=== PATIENT | female | born 1980 ===

== ENCOUNTER 2019-06-08 08:45 | Emergency (ER) | payer OTHER, MEDICAID, SELFPAY ==
[2019-06-08 08:57] VITALS: BP 154/88; PULSE 77; RESP 14; TEMP 36.2; O2SAT 98
--- NOTE | 2019-06-08 09:21 | ED.DENTAL ---
HPI - Dental/Oral General Chief complaint: Dental/Oral Stated complaint: LEFT SIDE FACE HURTS BAD TICLARU? Time Seen by Provider: 06/08/19 08:46 Source: patient and family Mode of arrival: Ambulatory History of Present Illness HPI Narrative: Patient here with mother. Complains 9 days of pain at tooth 18. That radiates upwards to the parietal area of her head. No cough cold congestion fever chills. No drooling. No tongue elevation. No dyspnea. No neck pain. Patient in the past has possible history of trigeminal neuralgia. Patient is in the workup of getting MRI for this evaluation. She does see a dentist 2 days ago in [place].. Her local dentist office is not open due to COVID-19. Denies , does not want test dentist placed her on amoxicillin and seemed to improve yesterday but not today Location: Tooth # Teeth map: 1. Tenderness at tooth 18. No surrounding erythema edema. No palpable abscess. No mandibular or cheek swelling edema erythema Related Data Previous Rx's Medication Instructions Recorded ondansetron HCl 4 mg tablet 4 mg PO Q4HP PRN #30 tab MDD 4 mg 11/01/18 clonazepam 2 mg tablet 2 mg PO QDAY 30 Days #30 tab MDD 2 05/09/19 mg lisdexamfetamine 10 mg capsule 10 mg PO DAILY #30 cap 05/09/19 clindamycin HCl 150 mg PO TID #21 cap 06/08/19 clindamycin HCl 300 mg PO TID #21 cap 06/08/19 ibuprofen 800 mg PO Q8H #14 tab 06/08/19 Allergies Allergy/AdvReac Type Severity Reaction Status Date / Time Sulfa (Sulfonamide Allergy Severe hives Verified 04/01/19 14:32 Antibiotics) [SULFA (SULFONAMIDE ANTIBIOTICS)] acetaminophen [From VICODIN] Allergy Intermediate nausea, Verified 04/01/19 14:32 vomiting codeine [CODEINE] Allergy Intermediate passing Verified 04/01/19 14:32 out, vomit hydrocodone [From VICODIN] Allergy Intermediate nausea, Verified 04/01/19 14:32 vomiting Opioids - Morphine Analogues AdvReac Intermediate dizzy, Verified 04/01/19 14:32 nausea, vomitting hair dyes Allergy Intermediate cai Uncoded 04/01/19 14:32 Review of Systems Review of Systems Narrative: GENERAL: Denies chills, fatigue, malaise, fever, sweats. HEENT: Denies sore throat difficulty swallowing, complaint dental pain. RESPIRATORY: Denies dyspnea, cough, wheezing, hemoptysis, sputum. CARDIOVASCULAR: Denies chest pain, palpitations, orthopnea, edema, GASTROINTESTINAL: Denies nausea, vomiting, abdominal pain, diarrhea, constipation, melena. MUSCULOSKELETAL: denies weakness, joint pain, or bony pain SKIN: Denies rash, skin lesions, or other NEUROLOGIC: Denies weakness, headache, numbness, change in speech, confusion, seizures, incoordination. PSYCHIATRIC: No concerning psychosocial issues. 12 point review of systems is negative except for those stated above ROS Unobtainable: All systems reviewed & are unremarkable except as noted in HPI and below Patient History Medical History (Updated 06/08/19 @ 09:30 by Jovani Martinez MD) Post depression (Inactive) Post traumatic stress disorder (PTSD) (Inactive) Situational stress (Acute) Surgical History (Updated 06/06/17 @ 05:11 by Conversion Provider) Status post tubal ligation Family History (Updated 06/30/15 @ 00:00 by Conversion Provider) Brother Age: 37 Mental health problem Child Age: 17 Mental health problem Father Hypertension Grandmother Cancer Diabetes mellitus Mother Hypertension Grandfather Heart disease Grandmother Cancer Social History Smoking Status: Current every day smoker Smoking Status: Current every day smoker Substance Use Type: does not use Exam Narrative Exam Narrative: GENERAL: [] year old patient appears stated age. Well-nourished, well-developed patient, in no distress, not toxic HEAD: Atraumatic. Normocephalic. EYES: Pupils equal round and reactive. Extraocular motions intact. No scleral icterus. No injection or drainage. ENT: Nose without bleeding, purulent drainage. Throat without erythema, tonsillar hypertrophy or exudate. Airway patent. Tenderness at tooth 18. No surrounding erythema edema. No palpable abscess. No fracture. No visible dental caries seen. No mandibular swelling erythema. Small palpable hard nodule from the cheek surface overlying tooth 18 no trismus no malocclusion no tongue elevation or drooling NECK: Trachea midline. Non tender SKIN: No rash or erythema of visible areas Initial Vital Signs Initial Vital Signs: Vital Signs Temperature 97.2 F L 06/08/19 08:57 Pulse Rate 77 06/08/19 08:57 Respiratory Rate 14 06/08/19 08:57 Blood Pressure 154/88 H 06/08/19 08:57 Pulse Oximetry 98 06/08/19 08:57 Course Orders Ordered: Discontinued Medications Al Hydrox/Mg Hydrox/Simethicone 20 ml/ Lidocaine HCl 15 ml 0 ml PO NOW ONE Stop: 06/08/19 09:17 Last Admin: 06/08/19 09:27 Dose: 15 ml Documented by: RONNY Ketorolac Tromethamine (Toradol) 60 mg IM NOW ONE Stop: 06/08/19 09:16 Last Admin: 06/08/19 09:26 Dose: 60 mg Documented by: RONNY Ondansetron HCl (Zofran Odt) 4 mg SL NOW ONE Stop: 06/08/19 09:16 Last Admin: 06/08/19 09:27 Dose: 4 mg Documented by: RONNY Reevaluation(s) Reevaluation #1: Time 9:54 a.m.. Patient states pain better after dental ball as well as Toradol. Not toxic. Desires discharge home. Vital Signs Vital signs: Vital Signs - 8 hr 06/08/19 08:57 Temperature 97.2 F L Pulse Rate 77 Respiratory Rate 14 Blood Pressure 154/88 H Pulse Oximetry 98 MDM - Dental/Oral Differential Diagnosis Differential diagnosis: Likely gingival abscess, dental caries, toothache and dental abscess MDM Narrative Medical decision making narrative: Patient not toxic. Appropriate for discharge home. Patient does have local dentist. Discharge Plan Departure Patient Disposition: Home Clinical Impression: Toothache Instructions: Tooth Decay Prevention (Alternative Therapy), Tooth Abscess, DI for Dental Pain Activity Restrictions/Additional Instructions: Return if worse. Call your family dentist for next appointment that is available within 2 weeks. Return if worse. Prescriptions: New clindamycin HCl 300 mg capsule 300 mg PO TID Qty: 21 RF: 0 clindamycin HCl 150 mg capsule 150 mg PO TID Qty: 21 RF: 0 ibuprofen 800 mg tablet 800 mg PO Q8H Qty: 14 RF: 0 No Action ondansetron HCl 4 mg tablet 4 mg PO Q4HP MDD 4 mg PRN (Reason: nausea and vomiting) Qty: 30 RF: 1 lisdexamfetamine 10 mg capsule 10 mg PO DAILY Qty: 30 RF: 0 clonazepam 2 mg tablet 2 mg PO QDAY MDD 2 mg 30 Days Qty: 30 RF: 2
[2019-06-08] MEDS: KETOROLAC 60 MG/2 ML VIAL IM (09:26)
[2019-06-08] MEDS: MAG HYDROX/ALUMINUM/SIMETH SUS 20 ML, LIDOCAINE VISCOUS 2% 15 ML PO (09:27)
[2019-06-08] MEDS: ONDANSETRON 4 MG ODT SL (09:27)
== END 2019-06-08 10:00 | disposition home or self-care (01) ==
PROVIDERS: Emergency Provider Emergency Medicine
DX: K08.89 Other specified disorders of teeth and supporting structures (principal)
CPT/HCPCS: 96372; 99283; J1885

== ENCOUNTER → 2020-02-19 16:12 | Outpatient (CLI) | payer OTHER, MEDICAID, SELFPAY ==
--- NOTE | 2020-02-19 16:14 | DI.US.S_ITS ---
PROCEDURE: US PELVIC COMPLETE INDICATIONS: Dysmenorrhe TECHNIQUE: Real-time scanning was performed of the pelvic organs, with image documentation. Additional endovaginal scanning was necessary due to incomplete visualization of the adnexal and endometrial structures by transabdominal scanning. COMPARISON: [facility], US, PELVIC COMPLETE, 07/01/2015, 9:55. FINDINGS: Transabdominal scanning: Limited scanning through the kidneys shows no hydronephrosis. No pathologic free abdominal or pelvic fluid. Endovaginal scanning: Uterus: Uterus is normal in size at 10.3 x 5.1 x 7.8 cm. The endometrium measures 10.1 mm in combined thickness. Ovaries: Right ovary measures 2.7 x 1.7 x 2.3 cm and the left 3.5 x 1.8 x 2.0 cm. No adnexal masses seen. IMPRESSION: No source for dysmenorrhea identified. Dictated by: Esequiel Celestin A Interpreted: Peggy Kyle MD on 02/19/2020 at 16:57 Approved by: Peggy Kyle MD, PhD on 02/20/2020 at 14:42
== END ==
PROVIDERS: Referring Provider Physician Assistant; Visit Provider Physician Assistant
DX: N94.6 Dysmenorrhea, unspecified (principal)
CPT/HCPCS: 76830; 76856